=== PATIENT | female | born 1955 | race Caucasian/White ===

== ENCOUNTER 2017-03-21 06:52 | Outpatient (CLI) | payer OTHER ==
[~2017-03-21] VITALS: Ht 152.4 cm; Wt 50.8 kg
[~2017-03-21 06:52] MED LIST: BLAC40CA2 PO; CALC-195 PO; COEN1POW PO; GLUC1CAP10 PO; MELATONIN PO; TURM500C PO; VITA500T PO; [UNRECOGNIZED DRUG - CODE] PO
[2017-03-21] MEDS ORDERED: NS 1,000 ML IV SCH (07:00)
[2017-03-21] MEDS ORDERED: PROPOFOL 200 MG/20 ML VIAL As Ordered ONE (07:46)
[2017-03-21] MEDS ORDERED: LIDOCAINE 2% INJ 100 MG/5 ML SDV (FOR ANES.) As Ordered ONE (07:46)
--- NOTE | 2017-03-21 08:02 | ROOR ---
Patient Name: Kaitlin Wallis Procedure Date: 03/21/2017 7:39 AM Date of : 1955 Age: 61 Room: [facility] Gender: Female Note Status: Finalized Procedure: Total Colonoscopy to Cecum Indications: High risk colon cancer surveillance: Personal history of colonic polyps, Last colonoscopy: 2009 Providers: Kenney Saldivar MD Referring MD: ELDA VILLALBA MD Requesting Provider: Medicines: Monitored Anesthesia Care Complications: No immediate complications. Procedure: Pre-Anesthesia Assessment: - The heart rate, respiratory rate, oxygen saturations, blood pressure, adequacy of pulmonary ventilation, and response to care were monitored throughout the procedure. The Colonoscope was introduced through the anus and advanced to the cecum, identified by appendiceal orifice and ileocecal valve. The colonoscopy was performed without difficulty. The patient tolerated the procedure well. The quality of the bowel preparation was excellent. Findings: The perianal and digital rectal examinations were normal. Non-bleeding internal hemorrhoids were found during retroflexion. The hemorrhoids were small and Grade I (internal hemorrhoids that do not prolapse). A diffuse area of severe melanosis was found in the entire colon. The exam was otherwise without abnormality on direct and retroflexion views. Impression: - Non-bleeding internal hemorrhoids. - Melanosis in the colon. - The examination was otherwise normal on direct and retroflexion views. - No specimens collected. - The exam was otherwise normal to the cecum. Recommendation: - Patient has a contact number available for emergencies. The signs and symptoms of potential delayed complications were discussed with the patient. Return to normal activities tomorrow. Written discharge instructions were provided to the patient. - High fiber diet. - Discharge patient to home. - Continue present medications. - Repeat colonoscopy in 5 years for surveillance. - Return to referring physician. - The findings and recommendations were discussed with the patient's family. Kenney Saldivar MD Kenney Saldivar MD 03/21/2017 8:02:11 AM This report has been signed electronically. Number of Addenda: 0 Note Initiated On: 03/21/2017 7:39 AM Estimated Blood Loss: Estimated blood loss: none.
[2017-03-21 08:20] VITALS: BP 131/73
== END 2017-03-21 08:27 | disposition home or self-care (01) ==
LOC: M OPP 06:52
PROVIDERS: ATTEND Internal Medicine Gastroenterology
DX: Z12.11 Encounter for screening for malignant neoplasm of colon (principal); Z86.010 Personal history of colon polyps; K63.89 Other specified diseases of intestine; K64.0 First degree hemorrhoids; M19.90 Unspecified osteoarthritis, unspecified site; Z78.0 Asymptomatic menopausal state; Z80.8 Family history of malignant neoplasm of other organs or systems; Z80.7 Family history of other malignant neoplasms of lymphoid, hematopoietic and related tissues; Z80.3 Family history of malignant neoplasm of breast; Z83.71 Family history of colonic polyps

== ENCOUNTER 2019-04-11 14:33 | Emergency (ER) | payer MEDICARE, OTHER ==
[~2019-04-11] VITALS: Ht 162.6 cm; Wt 50.9 kg
[2019-04-11] MEDS ORDERED: NS 1,000 ML IV ONE ×3 (15:30→16:45)
[2019-04-11 15:51] LABS: BASO # 0.1 10^3/uL (0.0-0.2); BASO % 0.8 % (0.0-1.0); EOS % 0.2 % (0.0-3.0); HEMATOCRIT 34.7 % (36.0-47.0); HEMOGLOBIN 11.5 g/dl (12.0-15.5); LYMPH # 0.8 10^3/uL (1.5-5.0); LYMPH % 12.4 % (24.0-44.0); MEAN CORPUSCULAR HEMOGLOBIN 31.2 pg (27.0-33.0); MEAN CORPUSCULAR HGB CONC 33.1 g/dl (32.0-36.5); MONO # 1.2 10^3/uL (0.0-0.8); MONO % 17.8 % (0.0-5.0); NEUTROPHILS # 4.5 10^3/uL (1.5-8.5); NEUTROPHILS % 68.5 % (36.0-66.0); PLATELET COUNT, AUTOMATED 210 10^3/uL (150-450); RED BLOOD COUNT 3.69 10^6/uL (4.00-5.40); WHITE BLOOD COUNT 6.5 10^3/uL (4.0-10.0)
--- NOTE | 2019-04-11 16:05 | REP ---
Clinical: Cough . Comparison: None . Technique: PA and lateral. Findings: The mediastinum and cardiac silhouette are normal. The lung wheeler are clear and without acute consolidation, effusion, or pneumothorax. The skeletal structures are intact and normal. Impression: 1. No acute cardiopulmonary process. Electronically Signed by Raman Merida MD 04/11/2019 03:57 P
[2019-04-11 16:12] LABS: ERYTHROCYTE SEDIMENTATION RATE 65 mm/hr (0-30)
[2019-04-11 16:14] LABS: ALT/SGPT 95 U/L (12-78); BILIRUBIN,DIRECT 0.2 MG/DL (0.0-0.2); BILIRUBIN,TOTAL 0.5 MG/DL (0.2-1.0); BLOOD UREA NITROGEN 18 MG/DL (7-18); CALCIUM LEVEL 8.9 MG/DL (8.8-10.2); CARBON DIOXIDE LEVEL 25 MEQ/L (21-32); CHLORIDE LEVEL 101 MEQ/L (98-107); CREATININE FOR GFR 0.87 MG/DL (0.55-1.30); GLOMERULAR FILTRATION RATE > 60.0 (>45); GLUCOSE, FASTING 112 MG/DL (70-100); POTASSIUM SERUM 3.8 MEQ/L (3.5-5.1); SODIUM LEVEL 135 MEQ/L (136-145); TOTAL PROTEIN 6.2 GM/DL (6.4-8.2)
[2019-04-11 16:22] LABS: MONO REFLEX EBV COMP NEGATIVE (NEGATIVE)
--- NOTE | 2019-04-11 17:20 | REPVR ---
PROCEDURE INFORMATION: Exam: US Abdomen Limited, Right Upper Quadrant Exam date and time: 04/11/2019 5:13 PM Clinical history: 63 years old, female; Abnormal findings; Abnormal lab test; Elevated liver enzymes; Additional info: Elevated liver enzymes; Fatty liver vs obstructive process TECHNIQUE: Imaging protocol: Real-time ultrasound of the abdomen with image documentation. Examination was focused on the right upper quadrant. COMPARISON: No relevant prior studies available. FINDINGS: Liver: Normal. No masses. Gallbladder: Gallbladder not completely distended consistent with incomplete fasting. No calculi demonstrated. Common bile duct: The common bile duct measures 2 mm. No mass or choledocholithiasis. Pancreas: Visualized pancreas is unremarkable. Right kidney: Right kidney measures 10 x 5 x 4 cm. IMPRESSION: Gallbladder not completely distended consistent with incomplete fasting. No calculi demonstrated. Electronically signed by: Himanshu Dobson On 04/11/2019 17:20:00 PM
[2019-04-11] MEDS ORDERED: CIPROFLOXACIN 400 MG in IV 1 EA IV ONE (17:30)
[2019-04-11 18:49] VITALS: BP 119/72
[2019-04-11] MEDS ORDERED: IBUPROFEN 600 MG TAB PO ONE (19:00)
[2019-04-15 00:14] LABS: EBV VIRAL CAPSID AG IgM <36.0 U/mL (0.0-35.9)
== END 2019-04-11 19:12 | disposition home or self-care (01) ==
LOC: M ED 14:33
DX: N30.90 Cystitis, unspecified without hematuria (principal); Z79.899 Other long term (current) drug therapy
CPT/HCPCS: 71046; 76705; 80048; 80076; 81001; 83605; 85025; 85652; 86308; 86663; 86664; 86665; 87088; 87186; 87486; 87581; 87633; 87798; 96361; 96365; 99284; J0744

== ENCOUNTER → 2019-04-11 | Outpatient (REF) | payer OTHER | LOC: M LAB REF 12:25 | PROVIDERS: ATTEND Nurse Practitioner Family | DX: N39.0 Urinary tract infection, site not specified (principal) ==

== ENCOUNTER → 2019-08-05 | Outpatient (REF) | payer MEDICARE | LOC: M LAB REF 12:12 | PROVIDERS: ATTEND Nurse Practitioner Family | DX: N76.0 Acute vaginitis (principal) ==

== ENCOUNTER → 2019-12-30 | Outpatient (CLI) | payer MEDICARE ==
[~2019-12-30] MED LIST changes: +VITA-243 PO; -VITA500T PO
--- NOTE | 2019-12-30 14:47 | REP ---
Right knee series: Five views. History: Contusion. Findings: Five views of the right knee demonstrate normal bones, joints, and soft tissues. No fracture or subluxation is seen. Impression: Negative radiographs of the right knee. No fracture seen. Electronically Signed by Mariusz Walsh MD 12/30/2019 02:39 P
== END ==
LOC: M WUC 13:43
PROVIDERS: ATTEND Physician Assistant Medical
DX: M79.672 Pain in left foot (principal)

== ENCOUNTER → 2021-02-25 | Outpatient (REF) | payer MEDICARE | LOC: M LAB REF 15:51 | PROVIDERS: ATTEND Internal Medicine | DX: Z01.84 Encounter for antibody response examination (principal) ==

== ENCOUNTER → 2021-04-13 | Outpatient (REF) | payer MEDICARE | LOC: M LAB REF 11:18 | PROVIDERS: ATTEND Internal Medicine | DX: N39.0 Urinary tract infection, site not specified (principal) ==

== ENCOUNTER → 2021-08-31 | Outpatient (REF) | payer MEDICARE ==
[2021-08-31 12:52] LABS: BACTERIA, URINE AUTO NEGATIVE (NEGATIVE); RBC, URINE AUTO 1 /HPF (0-3); SQUAMOUS EPITHELIAL CELL UR AU 0 /HPF (0-6); WBC, URINE AUTO 0 /HPF (0-3)
== END ==
LOC: M LAB REF 12:14
PROVIDERS: ATTEND Internal Medicine
DX: R31.9 Hematuria, unspecified (principal)

== ENCOUNTER → 2022-02-21 | Outpatient (REF) | payer MEDICARE ==
[2022-02-21 13:58] LABS: BACTERIA, URINE NONE SEEN; HYALINE CAST, URINE NONE SEEN /lpf (0-1); RBC, URINE 0-1 /hpf (0-3); SQUAMOUS EPITHELIAL CELL URINE NONE SEEN /hpf (SMALL AMT); WBC, URINE 0-1 /hpf (0-3)
[2022-02-21 13:59] LABS: OTHER SEDIMENT, URINE TALC
== END ==
LOC: M LAB REF 11:06
PROVIDERS: ATTEND Internal Medicine
DX: Z53.9 Procedure and treatment not carried out, unspecified reason (principal)

== ENCOUNTER → 2023-01-09 | Outpatient (REF) | payer MEDICARE | LOC: M LAB REF 16:19 | PROVIDERS: ATTEND Nurse Practitioner Family | DX: R50.9 Fever, unspecified (principal); R30.0 Dysuria ==

== ENCOUNTER → 2023-07-02 | Outpatient (REF) | payer MEDICARE ==
[2023-07-02 12:39] LABS: APPEARANCE, URINE HAZY (CLEAR); BACTERIA, URINE AUTO NEGATIVE (NEGATIVE); BILIRUBIN, URINE AUTO NEGATIVE (NEGATIVE); BLOOD, URINE BLOOD NEGATIVE (NEGATIVE); COLOR, URINE YELLOW (YELLOW); GLUCOSE, URINE (UA) AUTO NEGATIVE (NEGATIVE); KETONE, URINE AUTO NEGATIVE (NEGATIVE); LEUKOCYTE ESTERASE, URINE AUTO NEGATIVE (NEGATIVE); NITRITE, URINE AUTO NEGATIVE (NEGATIVE); PROTEIN, URINE AUTO NEGATIVE (NEGATIVE); RBC, URINE AUTO 1 /HPF (0-3); SPECIFIC GRAVITY URINE AUTO 1.005 (1.002-1.035); SQUAMOUS EPITHELIAL CELL UR AU 0 /HPF (0-6); UROBILINOGEN, URINE AUTO 0.2 mg/dL (0.0-2.0); WBC, URINE AUTO 2 /HPF (0-3)
== END ==
LOC: M LAB REF 11:56
PROVIDERS: ATTEND Internal Medicine
DX: R31.9 Hematuria, unspecified (principal)

== ENCOUNTER → 2023-07-10 | Outpatient (REF) | payer MEDICARE | LOC: M LAB REF 16:22 | PROVIDERS: ATTEND Internal Medicine | DX: N39.0 Urinary tract infection, site not specified (principal) ==

== ENCOUNTER → 2023-12-28 | Outpatient (REF) | payer MEDICARE ==
[2024-01-02 13:27] LABS: LYME TOTAL ANTIBODY CIA <= 0.90 Index (<=0.90)
== END ==
LOC: M LAB REF 16:25
PROVIDERS: ATTEND Internal Medicine
DX: R53.83 Other fatigue (principal); M25.561 Pain in right knee

== ENCOUNTER → 2024-07-16 | Outpatient (CLI) | payer MEDICARE | LOC: M WUC 14:54 | PROVIDERS: ATTEND Internal Medicine | DX: R05.1 Acute cough (principal) ==

== ENCOUNTER 2024-09-22 08:10 | Day surgery (SDC) | payer MEDICARE ==
[~2024-09-22] VITALS: Ht 152.4 cm; Wt 51.3 kg
[~2024-09-22 08:10] MED LIST changes: +ALL10TAB PO; +BLAC40CA PO; +CALCTAB38 PO; +CO Q200C10 PO; +DOXE10CA PO; +HYAL60CA PO; +LEXA5TAB13 PO; +LR 1,000 ML IV SCH; +MAGN300T2 PO; +MELA5TAB47 PO; +MIDAZOLAM INJ 2MG/2ML VIAL As Ordered ONE; +VITA1CAP55 PO; +[UNRECOGNIZED DRUG - CODE] PO; +[UNRECOGNIZED DRUG - OTHER]
[2024-09-22] MEDS: CYCLOPENTOLATE 1% OPHTH SOLN 2ML BTL OD SCH (09:16)
[2024-09-22] MEDS: TETRACAINE 0.5% OPHTH SOLN 4ML OD SCH (09:16)
[2024-09-22] MEDS: FLURBIPROFEN 0.03% OPHTH SOLN 2.5 ML OD SCH (09:16)
[2024-09-22] MEDS: PHENYLEPHRINE 2.5% OPHTH SOL 2ML OD SCH (09:16)
[2024-09-22] MEDS ORDERED: fentaNYL 100 MCG/2 ML INJECTION As Ordered ONE (11:00)
[2024-09-22] MEDS: LIDOCAINE 1% SDV 5ML VIAL As Ordered ONE (11:02)
[2024-09-22] MEDS: CEFUROXIME 1MG/0.1ML INTRACAMERAL INJ As Ordered ONE (11:02)
[2024-09-22 11:21] VITALS: BP 115/68; TEMP 97.3; O2SAT 97
== END 2024-09-22 11:36 | disposition home or self-care (01) ==
LOC: M SDC 08:10
PROVIDERS: ATTEND Ophthalmology
DX: H25.11 Age-related nuclear cataract, right eye (principal); Z79.899 Other long term (current) drug therapy
CPT/HCPCS: 66984; J0697; J2250; J3010; V2632

== ENCOUNTER 2024-09-29 09:17 | Day surgery (SDC) | payer MEDICARE ==
[~2024-09-29] VITALS: Ht 152.4 cm; Wt 50.3 kg
[~2024-09-29 09:17] MED LIST changes: +fentaNYL 100 MCG/2 ML INJECTION As Ordered ONE
[2024-09-29] MEDS: TETRACAINE 0.5% OPHTH SOLN 4ML OS SCH (09:48)
[2024-09-29] MEDS: CYCLOPENTOLATE 1% OPHTH SOLN 2ML BTL OS SCH (09:48)
[2024-09-29] MEDS: FLURBIPROFEN 0.03% OPHTH SOLN 2.5 ML OS SCH (09:48)
[2024-09-29] MEDS: PHENYLEPHRINE 2.5% OPHTH SOL 2ML OS SCH (09:48)
[2024-09-29] MEDS ORDERED: LIDOCAINE 1% SDV 5ML VIAL SC PRN (09:55)
[2024-09-29] MEDS: LIDOCAINE 1% SDV 5ML VIAL As Ordered ONE (11:33)
[2024-09-29] MEDS: CEFUROXIME 1MG/0.1ML INTRACAMERAL INJ As Ordered ONE (11:33)
[2024-09-29 11:50] VITALS: BP 120/64; TEMP 97.4; O2SAT 96
== END 2024-09-29 12:05 | disposition home or self-care (01) ==
LOC: M SDC 09:17
PROVIDERS: ATTEND Ophthalmology
DX: H25.12 Age-related nuclear cataract, left eye (principal); Z86.0100 Personal history of colon polyps, unspecified
CPT/HCPCS: 66984; J0697; J2250; J3010; V2632

== ENCOUNTER 2024-12-17 23:15 | Emergency (ER) | payer MEDICARE ==
[~2024-12-17] VITALS: Ht 149.9 cm; Wt 50.8 kg
[~2024-12-17 23:15] MED LIST changes: -LR 1,000 ML IV SCH; -MIDAZOLAM INJ 2MG/2ML VIAL As Ordered ONE; -fentaNYL 100 MCG/2 ML INJECTION As Ordered ONE
[2024-12-17 23:35] VITALS: TEMP 97.4
[2024-12-17] MEDS ORDERED: MORPHINE 4 MG/ML 1 ML VIAL IV PRN (23:55)
[2024-12-17] MEDS: ONDANSETRON 4MG 2ML VIAL IV ONE (23:55)
[2024-12-18 00:09] VITALS: BP 133/71
[2024-12-18] MEDS: NITROGLYCERIN 0.4 MG SUBL TABLET SL PRN (00:09)
[2024-12-18 00:14] LABS: ALT/SGPT 25 U/L (7.0-40); AST/SGOT 41 U/L (<34); CALCIUM LEVEL 9.1 MG/DL (8.3-10.6); CARBON DIOXIDE LEVEL 27 MMOL/L (20-31); CHLORIDE LEVEL 104 MMOL/L (98-107); CREATININE FOR GFR 0.75 MG/DL (0.55-1.30); GLOMERULAR FILTRATION RATE 85.1 (>39); POTASSIUM SERUM 4.2 MMOL/L (3.5-5.1); SODIUM LEVEL 141 MMOL/L (136-145)
[2024-12-18 00:17] LABS: CK-MB VALUE MASS 3.0 NG/ML (<3.6)
[2024-12-18 00:22] LABS: FREE T4 1.17 NG/DL (0.89-1.76)
[2024-12-18 00:23] LABS: CPK CREATINE PHOSPHOKINASE 114 U/L (34-145); MB/CK RELATIVE INDEX 2.63 (< OR =4)
[2024-12-18] MEDS ORDERED: ISOVUE-370 76% 100 ML VIAL As Ordered ONE (00:36)
[2024-12-18 00:41] LABS: BASO # 0.1 10^3/uL (0.0-0.2); BASO % 1.7 % (0.0-1.0); EOS # 0.1 10^3/uL (0.0-0.5); EOS % 3.0 % (0.0-3.0); LYMPH # 2.2 10^3/uL (1.5-5.0); LYMPH % 54.8 % (24.0-44.0); MONO # 0.5 10^3/uL (0.0-0.8); MONO % 13.4 % (2.0-8.0); NEUTROPHILS # 1.1 10^3/uL (1.5-8.5); NEUTROPHILS % 26.9 % (36.0-66.0); PLATELET COUNT, AUTOMATED 232 10^3/uL (150-450)
[2024-12-18 01:51] LABS: CK-MB VALUE MASS 2.4 NG/ML (<3.6)
[2024-12-18 01:58] LABS: CPK CREATINE PHOSPHOKINASE 109.0 U/L (34-145); MB/CK RELATIVE INDEX 2.2 (< OR =4)
[2024-12-18] MEDS ORDERED: LEVS0.124 SL (04:12)
[2024-12-18 04:15] VITALS: BP 139/73; O2SAT 98
== END 2024-12-18 04:26 | disposition home or self-care (01) ==
LOC: EDBD 23:15 → M ED 23:15
DX: K22.4 Dyskinesia of esophagus (principal); R00.1 Bradycardia, unspecified; I25.2 Old myocardial infarction; Z79.899 Other long term (current) drug therapy
CPT/HCPCS: 36415; 71045; 71275; 74174; 80047; 80048; 80076; 82550; 82553; 83690; 83880; 84439; 84443; 84484; 85025; 93005; 93041; 94760; 99285; Q9967